=== PATIENT | male | born 1950 | race Caucasian/White ===

== ENCOUNTER 2023-07-28 12:37 | Inpatient (IN) ==
[2023-07-28] MEDS ORDERED: SODIUM CHLORIDE 0.9% 1,000 ML IV SCH (13:00)
[2023-07-28 13:18] LABS: Basophils # (auto) 0.11 K/uL (0.00-0.20); Basophils % (auto) 1.3 %; Eosinophils # (auto) 0.92 K/uL (0.00-0.50); Eosinophils % (auto) 11.3 %; Hematocrit (blood only) 38.2 % (42.0-52.0); Immature Granulocytes # (auto) 0.03 K/uL (0.01-0.20); Immature Granulocytes % (auto) 0.4 %; Lymphocytes # (auto) 1.17 K/uL (1.20-3.40); Lymphocytes % (auto) 14.3 %; Mean Corpuscular Volume 94.1 fL (80.0-100.0); Mean Platelet Volume 11.1 fL (9.4-12.4); Monocytes # (auto) 0.74 K/uL (0.11-0.59); Monocytes % (auto) 9.1 %; Neutrophils % (auto) 63.6 %; Platelet Count 197 K/uL (130-400); RDW Coefficient of Variation 12.2 % (11.5-14.5); RDW Standard Deviation 41.8 fL (36.4-46.3); Red Blood Count 4.06 M/uL (4.70-6.10); White Blood Count 8.17 K/ul (4.8-10.8)
--- NOTE | 2023-07-28 13:28 | XRay Report ---
XR chest 1V portable HISTORY: Sepsis COMPARISON: Chest 08/19/2022. FINDINGS: No pneumothorax. The cardiac silhouette remains enlarged. No evidence for pulmonary edema. Small bilateral pleural effusions and bibasilar linear densities persist. The upper lung zones are cl ear. IMPRESSION: 1. Stable cardiomegaly. No evidence for pulmonary edema. 2. Small bilateral pleural effusions and bibasilar linear densities persist. ACT 112: Negative or not required by law. Electronically signed by: Froylan Srinivasan M.D. 07/28/2023 1:26 PM
[2023-07-28 13:36] LABS: Albumin Level 3.7 gm/dl (3.4-5.0); BUN Creatinine Ratio 25.6 (10-20); Bilirubin Direct 0.1 mg/dl (0-0.2); Bilirubin,Total 0.5 mg/dl (0.2-1.0); Calcium 8.5 mg/dl (8.6-10.3); Est GFR (African American) 15.4 ml/min; Est GFR (Non-African American) 13.3 ml/min; Magnesium 2.2 mg/dl (1.7-2.4); Potassium 5.1 mmol/L (3.5-5.1); Total Protein 6.4 gm/dl (6.0-8.3)
--- NOTE | 2023-07-28 13:36 | Electrocardiogram Report ---
Test Reason : Blood Pressure : / mmHG Vent. Rate : 055 BPM Atrial Rate : 055 BPM P-R Int : 190 ms QRS Dur : 096 ms QT Int : 386 ms P-R-T Axes : 048 042 033 degrees QTc Int : 369 ms Sinus bradycardia Low voltage QRS Borderline ECG When compared with ECG of 19-AUG-2022 19:08, No significant change was found Confirmed by Garfield Mcginnis ([id number]) on 07/28/2023 1:36:38 PM Referred By: Confirmed By:Garfield Mcginnis
[2023-07-28 13:44] LABS: Troponin I High Sensitivity 9.7 pg/ml (0-20)
[2023-07-28 14:55] LABS: Base Excess VBG -7.7 mEq/L; HCO3 VBG 20 mmol/L; Oxygen Saturation VBG < 60.0 %; PCO2 VBG 51 mmHg (38-50); PO2 VBG 25 mmHg; pH VBG 7.21 (7.36-7.41)
--- NOTE | 2023-07-28 14:57 | Emergency Department Note ---
Impression & Plan Lightheadedness, Acute kidney injury superimposed on chronic kidney disease, Acidosis ED Provider Note HISTORY OF PRESENT ILLNESS: Patient is a 73-year-old male presenting with dizziness and hypotension. Patient reports has been having episodes of dizziness described as feeling like he is going to pass out for the last few days. 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 His vital signs showed a blood pressure of 88/48 while he was seated. His EKG at the clinic showed normal sinus rhythm with some T wave inversions in lead III. This was noted to be abnormal from his previous EKG at the [facility] he was sent to the ER for further evaluation. Patient denies any chest pain over the last few days. He reports he been short of breath for the last few weeks, as he was diagnosed with COVID at the end of June. Denies any fevers. Denies any nausea or vomiting. He reports he is more short of breath and very dizzy when he exerts himself. Denies any history of DVT or PE. He is not on any anticoagulation. ROS: as above PHYSICAL EXAM: Constitutional: Patient appears in no acute distress. HENT: Head: Normocephalic and atraumatic. Eyes: EOMI, PERRL Mouth/Throat: Mucous membranes moist. Neck: Trachea midline. Neck supple. Cardiovascular: RRR, No murmurs, rubs or gallops. Intact distal pulses. Pulmonary/Chest: No respiratory distress. Breath sounds clear and equal bilaterally. No wheezes or rales. Abdominal: Abdomen soft, no tenderness, rebound or guarding. Musculoskeletal: No edema, tenderness or deformity noted. Skin: Warm and dry. No rash, erythema, pallor or cyanosis Psychiatric: Appropriate mood and affect for situation. Neurological: Alert and keenly responsive. CN II-XII grossly intact, moving all extremities equally and fully. MDM: - Vitals signs showed bradycardia - History obtained via patient. History as above - Chronic conditions affecting care: CKD stage 4; HTN; hyperparathyroidism - Differential diagnoses include, but are not limited to: ACS; PE; pneumonia; viral syndrome; UTI; sepsis - Order placed for continuous cardiac monitoring. At this time, monitor showed rate of 60 bpm with normal sinus rhythm, per my interpretation. - External medical records reviewed. EKG from [facility] was reviewed. Dated 07/28/2023 time 1057. Showed normal sinus rhythm with a rate of 66 bpm. QTc was 398. He is noted to have some T wave inversions in lead III. No evidence of acute ischemic changes - EKG reviewed by myself showed normal sinus rhythm. Rate 55 bpm. QTc 369. No acute ischemic changes. The T wave inversions on our EKG are significantly less as compared to the EKG at the [facility]. - Laboratory workup interpreted by myself showed normal WBC; stable electrolyt es; JESUS on CKD (Cr 4.1 - baseline around 2.6); normal troponin; normal procalcitonin; normal lactate - VBG shows acidosis (pH 7.21; PCO2 slightly elevated at 51) - CXR shows bilateral pleural effusions, per my interpretation. - Blood cultures obtained - Patient's orthostatics stable. However, patient reports feeling lightheaded while standing. Patient has been bradycardic. On previous EKGs his heart rate was in the upper 70s to low 80s. I wonder if his lightheadedness is secondary to his symptomatic bradycardia. He has no evidence of a heart block on his EKG. However, dizziness may also be secondary to dehydration. Patient does have an JESUS superimposed on his CKD. He reports dizziness with standing upright and ambulation. Given 1 L normal saline in the ER - Discussion was had with marriage and family social worker about patient's case and need for admission - Hospitalist consulted for admission - Patient admitted to [facility] Hospitalist service for further evaluation and management. 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 Vitamin D deficiency Surgical History No pertinent past surgical history Social History (Updated 08/14/22 @ 14:34 by BECKY Solis) Smoking Status: Never smoker Tobacco Type: Cigarettes Age Started Using Tobacco: 18; Age Quit Using Tobacco: 48; Second Hand Exposure: No; Do You Dip or Chew Tobacco: No; Hx Alcohol Use: No Hx Substance Use: No Preferred Language: [place] Visual Impairment: Partially Limited Hearing Ability: Use of Hearing Aid Referral Nurse Required: No Beliefs That Will Affect Care: None marital status: Current Living Situation: Spouse current occupational status: retired Feels Safe at Home: Yes Childhood Exposure to Second-Hand Smoke: Yes Diet: regular caffeine: No during the past year weight has: remained stable Physical Activity Frequency: Does not Exercise Seatbelt Use: always Allergies Allergies Allergy/AdvReac Type Severity Reaction Status Date / Time cephalexin [From Keflex] Allergy Unknown CAN'T Verified 07/28/23 15:47 REMEMBER Home Meds Home Medications Medication Instructions Recorded Confirmed atorvastatin 80 mg tablet 80 mg PO DAILY 11/13/19 04/26/23 allopurinol 100 mg tablet 100 mg PO DAILY 12/19/20 04/26/23 ferrous sulfate 325 mg (65 mg 325 mg PO DAILY 12/19/20 04/26/23 iron) tablet isosorbide mononitrate 30 mg 30 mg PO DAILY 12/19/20 04/26/23 tablet,extended release 24 hr levothyroxine 50 mcg tablet 50 mcg PO DAILY 12/19/20 04/26/23 nitroglycerin 0.4 mg sublingual 0.4 mg sublingual Q5M PRN Chest 12/19/20 04/26/23 tablet Pain albuterol sulfate 90 mcg/actuation 2 puff inhalation Q6H PRN 05/20/22 04/26/23 aerosol inhaler Shortness Of Breath folic acid 1 mg tablet 1 mg PO DAILY 05/20/22 04/26/23 pantoprazole 40 mg tablet,delayed 40 mg PO BID 05/20/22 04/26/23 release tamsulosin 0.4 mg capsule 0.4 mg PO DAILY 05/20/22 04/26/23 cholecalciferol (vitamin D3) 50 50 mcg PO DAILY 06/18/22 04/26/23 mcg (2,000 unit) capsule fluticasone 250 mcg-salmeterol 50 1 inh inhalation BID 08/10/22 04/26/23 mcg/dose blistr powdr for inhalation oxycodone 5 mg tablet 5 mg PO DAILY PRN Pain 08/10/22 04/26/23 tiotropium bromide 2.5 1 inh inhalation QAM 08/10/22 04/26/23 mcg/actuation mist for inhalation Previous Rx's Medication Instructions Recorded metoprolol tartrate 25 mg tablet 25 mg PO BID #60 tabs 10/22/22 lisinopril 10 mg tablet 10 mg PO DAILY #90 tabs 02/22/23 calcitriol 0.25 mcg capsule 0.25 mcg PO DAILY #90 caps 05/17/23 torsemide 10 mg tablet 10 mg PO DAILY #90 tabs 06/30/23 Results & Data (ED) Vital Signs Vital Signs - 24 hr 07/28/23 12:37 07/28/23 13:16 07/28/23 13:13 Temperature 36.3 C L Temperature Source Oral Pulse Rate - Lying Pulse Rate - Sitting Pulse Rate - Standing Pulse Rate 60 62 57 L Pulse Rate [Apical] Pulse Rate from SpO2 Sensor Respiratory Rate 18 22 Respiratory Effort / Characteristics Respiratory Depth Blood Pressure - Lying Blood Pressure - Sitting Blood Pressure- Standing Blood Pressure 99/62 L 122/61 Blood Pressure [Right Arm] Blood Pressure Mean 74 81 Blood Pressure Mean [Right Arm] Pulse Oximetry 98 96 Oxygen Delivery Method Sepsis Recent Fever Within 48 Hours No Sepsis New/Unexplained Change in Mental Status N/A Sepsis Action Taken by Nursing No Action Required 07/28/23 14:14 07/28/23 14:14 07/28/23 13:30 Temperature Temperature Source Pulse Rate - Lying Pulse Rate - Sitting Pulse Rate - Standing Pulse Rate 55 L Pulse Rate [Apical] 57 L Pulse Rate from SpO2 Sensor Respiratory Rate 20 22 Respiratory Effort / Characteristics Non-Labored Respiratory Depth Normal Blood Pressure - Lying Blood Pressure - Sitting Blood Pressure- Standing Blood Pressure 118/65 Blood Pressure [Right Arm] 124/70 Blood Pressure Mean 82 Blood Pressure Mean [Right Arm] 88 Pulse Oximetry 97 96 Oxygen Delivery Method Room Air Room Air Sepsis Recent Fever Within 48 Hours Sepsis New/Unexplained Change in Mental Status Sepsis Action Taken by Nursing 07/28/23 14:00 07/28/23 14:30 07/28/23 15:15 Temperature Temperature Source Pulse Rate - Lying 56 L Pulse Rate - Sitting 61 Pulse Rate - Standing 62 Pulse Rate 54 L 56 L Pulse Rate [Apical] Pulse Rate from SpO2 Sensor 54 L 55 L Respiratory Rate 21 16 Respiratory Effort / Characteristics Respiratory Depth Blood Pressure - Lying 136/73 Blood Pressure - Sitting 131/72 Blood Pressure- Standing 120/66 Blood Pressure 124/70 Blood Pressure [Right Arm] Blood Pressure Mean 88 Blood Pressure Mean [Right Arm] Pulse Oximetry 97 97 Oxygen Delivery Method Sepsis Recent Fever Within 48 Hours Sepsis New/Unexplained Change in Mental Status Sepsis Action Taken by Nursing 07/28/23 15:10 07/28/23 15:10 07/28/23 15:11 Temperature Temperature Source Pulse Rate - Lying Pulse Rate - Sitting Pulse Rate - Standing Pulse Rate 55 L 60 Pulse Rate [Apical] Pulse Rate from SpO2 Sensor Respiratory Rate 18 17 Respiratory Effort / Characteristics Respiratory Depth Blood Pressure - Lying Blood Pressure - Sitting Blood Pressure- Standing Blood Pressure 131/72 120/66 Blood Pressure [Right Arm] Blood Pressure Mean 86 84 Blood Pressure Mean [Right Arm] Pulse Oximetry 96 Oxygen Delivery Method Room Air Sepsis Recent Fever Within 48 Hours Sepsis New/Unexplained Change in Mental Status Sepsis Action Taken by Nursing 07/28/23 15:11 07/28/23 15:30 07/28/23 15:30 Temperature Temperature Source Pulse Rate - Lying Pulse Rate - Sitting Pulse Rate - Standing Pulse Rate 62 51 L Pulse Rate [Apical] Pulse Rate from SpO2 Sensor 51 L Respiratory Rate 13 22 Respiratory Effort / Characteristics Respiratory Depth Blood Pressure - Lying Blood Pressure - Sitting Blood Pressure- Standing Blood Pressure 139/70 Blood Pressure [Right Arm] Blood Pressure Mean 99 Blood Pressure Mean [Right Arm] Pulse Oximetry 95 Oxygen Delivery Method Sepsis Recent Fever Within 48 Hours Sepsis New/Unexplained Change in Mental Status Sepsis Action Taken by Nursing Laboratory Data 07/28/23 12:55 07/28/23 12:55 Lab Results 07/28/23 07/28/23 07/28/23 Range/Units 12:55 12:55 12:55 WBC 8.17 (4.8-10.8) K/ul RBC 4.06 L (4.70-6.10) M/uL Hgb 13.0 L (14.0-18.0) g/dl Hct 38.2 L (42.0-52.0) % MCV 94.1 (80.0-100.0) fL MCH 32.0 (25.0-34.0) pg MCHC 34.0 (32.0-36.0) g/dL RDW Std Deviation 41.8 (36.4-46.3) fL RDW Coeff of Nancy 12.2 (11.5-14.5) % Plt Count 197 (130-400) K/uL MPV 11.1 (9.4-12.4) fL Immature Gran % (Auto) 0.4 % Neut % (Auto) 63.6 % Lymph % (Auto) 14.3 % Hamilton % (Auto) 9.1 % Eos % (Auto) 11.3 % Baso % (Auto) 1.3 % Neut # (Auto) 5.20 (1.40-6.50) K/uL Lymph # (Auto) 1.17 L (1.20-3.40) K/uL Hamilton # (Auto) 0.74 H (0.11-0.59) K/uL Eos # (Auto) 0.92 H (0.00-0.50) K/uL Baso # (Auto) 0.11 (0.00-0.20) K/uL Immature Gran # (Auto) 0.03 (0.01-0.20) K/uL VBG pH (7.36-7.41) VBG pCO2 (38-50) mmHg VBG pO2 mmHg VBG HCO3 mmol/L VBG O2 Saturation % VBG Base Excess mEq/L Sodium 140 (136-145) mmol/L Potassium 5.1 (3.5-5.1) mmol/L Chloride 112 H (98-107) mmol/L Carbon Dioxide 21 (21-32) mmol/L Anion Gap 7 (3-11) BUN 105 H (6-23) mg/dl Creatinine 4.10 H (0.6-1.4) mg/dl Est Cr Clr Drug Dosing 20.0 ml/min Est GFR ( Amer) 15.4 ml/min Est GFR (Non-Af Amer) 13.3 ml/min BUN/Creatinine Ratio 25.6 H (10-20) Glucose 89 (70-99(Fasting)) mg/dl Lactate (0.4-2.0) mmol/L Calcium 8.5 L (8.6-10.3) mg/dl Magnesium 2.2 (1.7-2.4) mg/dl Total Bilirubin 0.5 (0.2-1.0) mg/dl Direct Bilirubin 0.1 (0-0.2) mg/dl AST 18 (13-39) U/L ALT 18 (7-52) U/L Alkaline Phosphatase 93 (34-104) U/L Troponin I High Sens 9.7 (0-20) pg/ml Total Protein 6.4 (6.0-8.3) gm/dl Albumin 3.7 (3.4-5.0) gm/dl Procalcitonin 0.17 (0-0.5) ng/ml 07/28/23 07/28/23 Range/Units 14:36 14:36 WBC (4.8-10.8) K/ul RBC (4.70-6.10) M/uL Hgb (14.0-18.0) g/dl Hct (42.0-52.0) % MCV (80.0-100.0) fL MCH (25.0-34.0) pg MCHC (32.0-36.0) g/dL RDW Std Deviation (36.4-46.3) fL RDW Coeff of Nancy (11.5-14.5) % Plt Count (130-400) K/uL MPV (9.4-12.4) fL Immature Gran % (Auto) % Neut % (Auto) % Lymph % (Auto) % Hamilton % (Auto) % Eos % (Auto) % Baso % (Auto) % Neut # (Auto) (1.40-6.50) K/uL Lymph # (Auto) (1.20-3.40) K/uL Hamilton # (Auto) (0.11-0.59) K/uL Eos # (Auto) (0.00-0.50) K/uL Baso # (Auto) (0.00-0.20) K/uL Immature Gran # (Auto) (0.01-0.20) K/uL VBG pH 7.21 L (7.36-7.41) VBG pCO2 51 H (38-50) mmHg VBG pO2 25 mmHg VBG HCO3 20 mmol/L VBG O2 Saturation < 60.0 % VBG Base Excess -7.7 mEq/L Sodium (136-145) mmol/L Potassium (3.5-5.1) mmol/L Chloride (98-107) mmol/L Carbon Dioxide (21-32) mmol/L Anion Gap (3-11) BUN (6-23) mg/dl Creatinine (0.6-1.4) mg/dl Est Cr Clr Drug Dosing ml/min Est GFR ( Amer) ml/min Est GFR (Non-Af Amer) ml/min BUN/Creatinine Ratio (10-20) Glucose (70-99(Fasting)) mg/dl Lactate 0.9 (0.4-2.0) mmol/L Calcium (8.6-10.3) mg/dl Magnesium (1.7-2.4) mg/dl Total Bilirubin (0.2-1.0) mg/dl Direct Bilirubin (0-0.2) mg/dl AST (13-39) U/L ALT (7-52) U/L Alkaline Phosphatase (34-104) U/L Troponin I High Sens (0-20) pg/ml Total Protein (6.0-8.3) gm/dl Albumin (3.4-5.0) gm/dl Procalcitonin (0-0.5) ng/ml Administered Medications Discontinued Medications Sodium Chloride (Nss) 1,000 mls @ 999 mls/hr IV .Q1H1M JOESPH Stop: 07/28/23 14:00 Last Infusion: 07/28/23 15:00 Dose: 0 mls/hr Documented By: Admin: 07/28/23 13:29 Dose: 999 mls/hr Documented By: MT Imaging Data Radiologist's Impression: Chest X-Ray 07/28/23 12:57 XR chest 1V portable HISTORY: Sepsis COMPARISON: Chest 08/19/2022. FINDINGS: No pneumothorax. The cardiac silhouette remains enlarged. No evidence for pulmonary edema. Small bilateral pleural effusions and bibasilar linear densities persist. The upper lung zones are clear. IMPRESSION: 1. Stable cardiomegaly. No evidence for pulmonary edema. 2. Small bilateral pleural effusions and bibasilar linear densities persist. ACT 112: Negative or not required by law. Electronically signed by: Froylan Srinivasan M.D. 07/28/2023 1:26 PM Discharge Plan Visit Data Chief Complaint: Referred by Doctor Stated Complaint: DIZZY, LOW BLOOD PRESSURE ED Provider: Darcy Crabtree Discharge Problem: Lightheadedness, Acute kidney injury superimposed on chronic kidney disease, Acidosis Forms Stand Alone Forms: [employer] Prescriptions Prescriptions: No Action calcitriol 0.25 mcg capsule 0.25 mcg PO DAILY Qty: 90 3RF torsemide 10 mg tablet 10 mg PO DAILY Qty: 90 3RF albuterol sulfate 90 mcg/actuation HFA aerosol inhaler 2 puff inhalation Q6H PRN (Reason: Shortness Of Breath) pantoprazole 40 mg tablet,delayed release (DR/EC) 40 mg PO BID folic acid 1 mg tablet 1 mg PO DAILY tamsulosin 0.4 mg capsule 0.4 mg PO DAILY levothyroxine 50 mcg tablet 50 mcg PO DAILYBB isosorbide mononitrate 30 mg tablet extended release 24 hr 30 mg PO DAILY allopurinol 100 mg tablet 100 mg PO DAILY nitroglycerin 0.4 mg tablet, sublingual 0.4 mg sublingual Q5M PRN (Reason: Chest Pain) Rx Instructions: do not exceed 3 doses per episode ferrous sulfate 325 mg (65 mg iron) tablet 325 mg PO DAILY oxycodone 5 mg tablet 5 mg PO DAILY PRN (Reason: Pain) fluticasone propion-salmeterol 250-50 mcg/dose blister with device 1 inh inhalation BID tiotropium bromide 2.5 mcg/actuation mist 1 inh inhalation QAM atorvastatin 80 mg tablet 80 mg PO HS lisinopril 10 mg tablet 10 mg PO DAILY Qty: 90 3RF albuterol sulfate 2.5 mg /3 mL (0.083 %) Solution For Nebulization 2.5 mg INHALATION Q8H PRN (Reason: Shortness Of Breath) multivitamin Tablet 1 tab PO DAILY cranberry extract [Cranberry Concentrate] 500 mg Capsule 1,500 mg PO QAM Rx Instructions: administer with meals metoprolol tartrate 25 mg tablet 12.5 mg PO BID Referrals Referrals: Hoa Dailey PA-C [Primary Care Provider] -
[2023-07-28] MEDS ORDERED: SODIUM CHLORIDE 0.9% 1,000 ML IV ONE (16:04)
--- NOTE | 2023-07-28 16:06 | History & Physical Report ---
Date of Service July 28, 2023 Assessment & Plan (1) Lightheadedness: Plan: Hypotension, presyncope. Suspect volume depletion, DDx includes symptomatic bradycardia Normotensive following fluids Patient additionally with slightly worsened resting bradycardia, previously was ranged from mid 50s80s. 5160 on admission. Metoprolol held. No heart block noted on EKG. Follow on telemetry. If symptomatic bradycardia develops, atropine is on-call. Suspect from volume depletion rather than symptomatic bradycardia, however if heart block is observed consult cardiology at that time Blood cultures drawn due to hypotension, no infectious symptoms. Antibiotics deferred, follow clinically Normotensive at time of reassessment, heart rate 6065 at time of reassessment. JESUS on CKD 4, history of IgA kidney nephropathy. 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 At last follow-up 04/26/2023 had discussed starting a sodium bicarbonate if continued to be persistently low BUN/creatinine ratio contracted at 25.6 Clinically slightly volume depleted with contracted ratio Received IVF M 1 L in ER. Diet ordered, encourage p.o. Trend labs daily Potassium upper limit of normal. Did receive fluids. No acute EKG changes. 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 Lisinopril held for JESUS. Torsemide held for JESUS. No evidence of pulmonary edema/volume overload Lexiscan 03/2022 without inducible ischemia. Echo 04/2022 EF 60%, no wall motion abnormality Lisinopril held, patient mildly hypertensive at assessment. Will defer aggressive antihypertensives in the setting of recent volume depletion/hypotension. Hydralazine 2.5 mg on-call as needed for SBP greater than 180 Recent COVID Initial symptoms 2 weeks ago. No hypoxia. Did not receive any antivirals or steroids No shortness of breath, difficulty breathing at this time No steroids currently indicated Initial symptoms 2 weeks ago. Discussed with infection control, patient does have ongoing dry cough and shortness of breath. History of gout Allopurinol continued, no evidence of acute flare BPH Flomax temporarily held with presyncope, resume 07/29 if doing well Bladder scan every shift, straight cath if needed for retention DVT prophylaxis:Heparin 2/2 CKD Diet: Heart healthy Disposition: Telemetry due to presyncope and bradycardia CODE STATUS: Full code (2) Acute kidney injury superimposed on chronic kidney disease: (3) Acidosis: (4) IgA nephropathy determined by renal biopsy: (5) LVH (left ventricular hypertrophy): (6) Chronic kidney disease, stage 4 (severe): (7) Acute kidney injury: History of Present Illness Primary Care Provider: Hoa Dailey PA-C 73-year-old male with past medical history of IgA nephropathy/CKD, hyperlipidemia, bradycardia and recent COVID who presents with lightheadedness and dizziness. No syncope. No chest pain Chart Review: No leukocytosis. Hemoglobin 13 on admit with baseline of around 1113, normocytic VB.21/51/25/20. Mixed respiratory and metabolic acidosis Creatinine baseline approximately 2.12.8. Creatinine 4.10 on admission Potassium 5.1 High-sensitivity troponin normal Procalcitonin normal CXR: Small bilateral pleural effusions, bibasilar linear densities, stable cardiomegaly without overt pulmonary edema Normal O2 saturation on room air EKG: Sinus bradycardia, QTc 369, no acute ischemic findings Per ER: - Outpatient [place] [facility] appointment was hypotensive 80s/60s. Few days of lightheadedness and fatigue. Small effusions without edema. COVID 12 days ago. Hx of - New mild bradycardia in the 50s. Is on metoprolol which was decreased by 50%(25-->12.5). prior to COVID. Clinically does not appear hypervolemic. Per Pt: "Yousif" reports he had COVID 2 weeks ago. 'Coughing then, still coughing now.' Has had some persistent shortness of breath. Mild clear sputum production. No fevers or chills recently. Had fevers/chills initially for 1-2 days then improvd. No diarrhea. No nausea/vomiting. Peeing regularly, has not been darker than usual. no dysuria. No belly pain. No chest pain or chest pressure. No syncope, but has felt lightheaded last few days. [facility] was [facility] for [facility] evaluation. Presyncope last 2-3 maybe 4 days. No prior hx of this. Has not fallen, no trauma/injuries. Taking all medications as directed, took his morning medications today Legs used to get a lot of swelling, none currently. No orthopnea. Medical History: Reviewed Medications: Reviewed Surgical History: Reviewed Family history: Reviewed Allergies: Reviewed. Keflex, but not sure what allergy is. Social History: No etoh use. No tobacco product use. Code Status: Full Code Allergies Allergy/AdvReac Type Severity Reaction Status Date / Time cephalexin [From Keflex] Allergy Unknown CAN'T Verified 07/28/23 15:47 REMEMBER Home Medications Medication Instructions Recorded Confirmed Type atorvastatin 80 mg tablet 80 mg PO HS 11/13/19 07/28/23 History allopurinol 100 mg tablet 100 mg PO DAILY 12/19/20 07/28/23 History ferrous sulfate 325 mg (65 mg 325 mg PO DAILY 12/19/20 07/28/23 History iron) tablet isosorbide mononitrate 30 mg 30 mg PO DAILY 12/19/20 07/28/23 History tablet,extended release 24 hr levothyroxine 50 mcg tablet 50 mcg PO DAILYBB 12/19/20 07/28/23 History nitroglycerin 0.4 mg sublingual 0.4 mg sublingual Q5M PRN Chest 12/19/20 07/28/23 History tablet Pain albuterol sulfate 90 mcg/actuation 2 puff inhalation Q6H PRN 05/20/22 07/28/23 History aerosol inhaler Shortness Of Breath folic acid 1 mg tablet 1 mg PO DAILY 05/20/22 07/28/23 History pantoprazole 40 mg tablet,delayed 40 mg PO BID 05/20/22 07/28/23 History release tamsulosin 0.4 mg capsule 0.4 mg PO DAILY 05/20/22 07/28/23 History fluticasone 250 mcg-salmeterol 50 1 inh inhalation BID 08/10/22 07/28/23 History mcg/dose blistr powdr for inhalation oxycodone 5 mg tablet 5 mg PO DAILY PRN Pain 08/10/22 07/28/23 History tiotropium bromide 2.5 1 inh inhalation QAM 08/10/22 07/28/23 History mcg/actuation mist for inhalation lisinopril 10 mg tablet 10 mg PO DAILY #90 tabs 02/22/23 07/28/23 Rx calcitriol 0.25 mcg capsule 0.25 mcg PO DAILY #90 caps 05/17/23 07/28/23 Rx torsemide 10 mg tablet 10 mg PO DAILY #90 tabs 06/30/23 07/28/23 Rx albuterol sulfate 2.5 mg/3 mL 2.5 mg inhalation Q8H PRN 07/28/23 07/28/23 History (0.083 %) solution for nebulization Shortness Of Breath cranberry extract 500 mg capsule 1,500 mg PO QAM 07/28/23 07/28/23 History (Cranberry Concentrate) metoprolol tartrate 25 mg tablet 12.5 mg PO BID 07/28/23 07/28/23 History multivitamin 1 tab PO DAILY 07/28/23 07/28/23 History Past Med/Surg History Medical History (Updated 07/28/23 @ 15:40 by Darcy Crabtree MD) Acute kidney injury Anemia of chronic disease Chronic kidney disease, stage 4 (severe) HTN (hypertension) IgA nephropathy determined by renal biopsy Lower extremity edema Proteinuria Secondary hyperparathyroidism of 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 Vitamin D deficiency Surgical History No pertinent past surgical history Social History (Updated 08/14/22 @ 14:34 by BECKY Solis) Smoking Status: Never smoker Tobacco Type: Cigarettes Age Started Using Tobacco: 18; Age Quit Using Tobacco: 48; Second Hand Exposure: No; Do You Dip or Chew Tobacco: No; Hx Alcohol Use: No Hx Substance Use: No Preferred Language: Belarusian Visual Impairment: Partially Limited Hearing Ability: Use of Hearing Aid Kiln Stoker Required: No Beliefs That Will Affect Care: None marital status: Current Living Situation: Spouse current occupational status: retired Feels Safe at Home: Yes Childhood Exposure to Second-Hand Smoke: Yes Diet: regular caffeine: No during the past year weight has: remained stable Physical Activity Frequency: Does not Exercise Seatbelt Use: always Review of Systems Review of Systems: All systems reviewed & are unremarkable except as noted in HPI & below Physical Exam Physical Exam: General: A&Ox3. NAD. Cooperative. HEENT: Atraumatic, normocephalic. Vision/hearing intact Pulm: CTAB A&P. -wheezes, -rales, -rhonchi. Symmetrical chest rise. No increased work of breathing. No respiratory distress. Cardiac: RRR, -mrg. Radial pulses intact and symmetrical. At time of assessment patient is not bradycardic, rate about 6060 Abdominal: Nontender, nondistended, soft. BS present. Extremities: Moves all extremities equally. Lower extremities warm and dry, no pitting edema Results & Data Results & Data Vital Signs (Past 12 Hours) Vital Signs Temp Pulse Pulse Resp BP BP Pulse Ox 07/28/23 15:30 51 L 22 95 07/28/23 15:30 139/70 07/28/23 15:11 62 13 07/28/23 15:11 120/66 07/28/23 15:10 60 17 07/28/23 15:10 55 L 18 131/72 96 07/28/23 14:30 56 L 16 97 07/28/23 14:00 54 L 21 124/70 97 07/28/23 13:30 55 L 22 118/65 07/28/23 14:14 96 07/28/23 14:14 57 L 20 124/70 97 07/28/23 13:13 57 L 22 122/61 96 07/28/23 13:16 62 07/28/23 12:37 36.3 C L 60 18 99/62 L 98 O2 Del Method 07/28/23 15:30 07/28/23 15:30 07/28/23 15:11 07/28/23 15:11 07/28/23 15:10 07/28/23 15:10 Room Air 07/28/23 14:30 07/28/23 14:00 07/28/23 13:30 07/28/23 14:14 Room Air 07/28/23 14:14 Room Air 07/28/23 13:13 07/28/23 13:16 07/28/23 12:37 PG Care Time/CCT Total # of Minutes Spent Total Time Spent with Patient: Total time spent is greater than 50% in coordination of care (as documented) at patient's floor/unit and/or counseling patient: Coding Level of Care Code 84734 INT INP/OBS CARE 3/75MIN Diagnoses Lightheadedness R42 Acute kidney injury superimposed on chronic kidney disease N17.9; N18.9 Acidosis E87.20 IgA nephropathy determined by renal biopsy N02.8 LVH (left ventricular hypertrophy) I51.7 Chronic kidney disease, stage 4 (severe) N18.4 Acute kidney injury N17.9
[2023-07-28 17:52] LABS: Appearance Urine Clear (Clear); Bacteria Urine Automated Negative (Negative); Bilirubin Urine Negative (Negative); Blood Urine Negative (Negative); Color Urine Yellow; Glucose Urine UA Negative (Negative); Ketones Urine Negative (Negative); Leukocyte Esterase Urine Negative (Negative); Nitrite Urine Negative (Negative); Protein Urine 1+ (Negative); RBC Urine Automated 0-4 /hpf (0-4); Specific Gravity Urine 1.012 (1.000-1.030); Urobilinogen Urine Negative (Negative)
[2023-07-28] MEDS ORDERED: ALBUTEROL HFA 8 GM INHALER INH PRN (19:51)
[2023-07-28] MEDS ORDERED: ATROPINE SULFATE 0.1 MG/ML 5ML SYR IV PRN (19:51)
[2023-07-28] MEDS ORDERED: oxyCODONE HCL IR 5 MG TAB (IMMEDIATE RELEASE) PO PRN (19:51)
[2023-07-28] MEDS ORDERED: NITROGLYCERIN SL 0.4 MG/TAB TAB SL PRN (19:51)
[2023-07-28] MEDS ORDERED: hydrALAZINE HCL 20 MG/ML VIAL IV PRN (19:51)
[2023-07-28] MEDS ORDERED: ALBUTEROL 0.083% NEBU SOLN 3 ML VIAL INH PRN (19:51)
[2023-07-28] MEDS: PANTOprazole 40 MG TAB PO SCH (20:43)
[2023-07-28] MEDS ORDERED: ATORVASTATIN 40 MG TAB PO SCH (21:00)
[2023-07-28] MEDS: HEPARIN SOD 5,000 UNIT/0.5 ML VIAL SQ SCH (22:57)
[2023-07-28 23:55] LABS: Total Protein Urine Random 38.1 mg/dl (0-11.9)
[2023-07-29 00:01] LABS: Creatinine Urine Random 71.5 mg/dl; Protein Creatinine Ratio Urine 0.5 (0-0.2)
[2023-07-29] MEDS: HEPARIN SOD 5,000 UNIT/0.5 ML VIAL SQ SCH ×2 (06:22→14:24)
[2023-07-29] MEDS ORDERED: LEVOTHYROXINE SODIUM 50 MCG TABLET PO SCH (06:30)
[2023-07-29 07:28] LABS: Basophils # (auto) 0.07 K/uL (0.00-0.20); Basophils % (auto) 1.1 %; Eosinophils # (auto) 0.82 K/uL (0.00-0.50); Eosinophils % (auto) 12.4 %; Hematocrit (blood only) 36.9 % (42.0-52.0); Hemoglobin 12.6 g/dl (14.0-18.0); Immature Granulocytes # (auto) 0.04 K/uL (0.01-0.20); Immature Granulocytes % (auto) 0.6 %; Lymphocytes # (auto) 1.02 K/uL (1.20-3.40); Lymphocytes % (auto) 15.4 %; Mean Corpuscular Hemoglobin 31.8 pg (25.0-34.0); Mean Corpuscular Hgb Conc 34.1 g/dL (32.0-36.0); Mean Corpuscular Volume 93.2 fL (80.0-100.0); Monocytes # (auto) 0.53 K/uL (0.11-0.59); Neutrophils # (auto) 4.15 K/uL (1.40-6.50); Neutrophils % (auto) 62.5 %; Platelet Count 160 K/uL (130-400); RDW Coefficient of Variation 12.2 % (11.5-14.5); RDW Standard Deviation 41.2 fL (36.4-46.3); Red Blood Count 3.96 M/uL (4.70-6.10); White Blood Count 6.63 K/ul (4.8-10.8)
[2023-07-29 07:39] LABS: BUN Creatinine Ratio 28.6 (10-20); Calcium 8.2 mg/dl (8.6-10.3); Est GFR (African American) 18.9 ml/min; Est GFR (Non-African American) 16.3 ml/min; Potassium 4.7 mmol/L (3.5-5.1)
[2023-07-29] MEDS: PANTOprazole 40 MG TAB PO SCH (08:28)
[2023-07-29] MEDS ORDERED: FERROUS SULFATE 325 MG TAB PO SCH (09:00)
[2023-07-29] MEDS ORDERED: allopurinoL 100 MG TAB PO SCH (09:00)
[2023-07-29] MEDS ORDERED: UMECLIDINIUM BROMIDE 62.5MCG/BLISTER 7 PUFFS/INHALER INH SCH (09:00)
[2023-07-29] MEDS ORDERED: FLUTICASONE/VILANTEROL 100/25MCG 14 PUFFS/INHALER INH SCH (09:00)
[2023-07-29] MEDS ORDERED: NON-FORMULARY MEDICATION (Cranberry Extract [Cranberry Concentrate] 500 mg Capsule) PO SCH (09:00)
[2023-07-29] MEDS ORDERED: FOLIC ACID 1 MG TAB PO SCH (09:00)
[2023-07-29] MEDS ORDERED: MULTIVITAMIN TAB PO SCH (09:00)
[2023-07-29] MEDS ORDERED: ISOSORBIDE MONO EXTENDED REL 30 MG TABCR PO SCH (09:00)
[2023-07-29] MEDS ORDERED: CALCITRIOL 0.25 MCG CAPSULE PO SCH (09:00)
--- NOTE | 2023-07-29 09:50 | Hospitalist Progress Note ---
Date of Service July 29, 2023 Assessment & Plan (1) Acute kidney injury superimposed on chronic kidney disease: Plan: JESUS on CKD 4, history of IgA kidney nephropathy. Suspect prerenal azotemia. 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 Lisinopril held for JESUS. Torsemide held for JESUS. No evidence of pulmonary edema/volume overload Lexiscan 03/2022 without inducible ischemia. Echo 04/2022 EF 60%, no wall motion abnormality Lisinopril held, patient mildly hypertensive at assessment. Will defer aggressive antihypertensives in the setting of recent volume depletion/hypotension. Hydralazine 2.5 mg on-call as needed for SBP greater than 180 (3) COVID: Plan: Recent COVID Initial symptoms 2 weeks ago. No hypoxia. Did not receive any antivirals or steroids No shortness of breath, difficulty breathing at this time covid test positive 07/28 Plan DVT prophylaxis:Heparin 2/2 CKD CODE STATUS: Full code Admission and Anticipated Discharge Date Admission Date: July 28, 2023 Results & Data Results & Data Vital Signs (Past 12 Hours) Vital Signs Temp Pulse Pulse Resp BP BP Pulse Ox 07/29/23 07:51 97.9 F 68 18 132/70 95 07/29/23 03:21 97.7 F 76 14 171/74 H 96 07/28/23 22:30 61 07/28/23 22:57 97.9 F 68 16 178/69 H 96 O2 Del Method 07/29/23 07:51 Room Air 07/29/23 03:21 Room Air 07/28/23 22:30 07/28/23 22:57 Room Air PG Care Time/CCT Total # of Minutes Spent Total Time Spent with Patient: Total time spent is greater than 50% in coordination of care (as documented) at patient's floor/unit and/or counseling patient: Coding Diagnoses Acute kidney injury superimposed on chronic kidney disease N17.9; N18.9 LVH (left ventricular hypertrophy) I51.7 COVID U07.1
--- NOTE | 2023-07-29 14:00 | Discharge Summary ---
Date of Service July 29, 2023 Admission HPI Per Admitting Provider 73-year-old male with past medical history of IgA nephropathy/CKD, hyperlipidemia, bradycardia and recent COVID who presents with lightheadedness and dizziness. No syncope. No chest pain Chart Review: No leukocytosis. Hemoglobin 13 on admit with baseline of around 1113, normocytic VB.21/51/25/20. Mixed respiratory and metabolic acidosis Creatinine baseline approximately 2.12.8. Creatinine 4.10 on admission Potassium 5.1 High-sensitivity troponin normal Procalcitonin normal CXR: Small bilateral pleural effusions, bibasilar linear densities, stable cardiomegaly without overt pulmonary edema Normal O2 saturation on room air EKG: Sinus bradycardia, QTc 369, no acute ischemic findings Per ER: - Outpatient [place] Pul[facility] appointment was hypotensive 80s/60s. Few days of lightheadedness and fatigue. Small effusions without edema. COVID 12 days ago. Hx of - New mild bradycardia in the 50s. Is on metoprolol which was decreased by 50%(25-->12.5). prior to COVID. Clinically does not appear hypervolemic. Per Pt: "Yousif" reports he had COVID 2 weeks ago. 'Coughing then, still coughing now.' Has had some persistent shortness of breath. Mild clear sputum production. No fevers or chills recently. Had fevers/chills initially for 1-2 days then improvd. No diarrhea. No nausea/vomiting. Peeing regularly, has not been darker than usual. no dysuria. No belly pain. No chest pain or chest pressure. No syncope, but has felt lightheaded last few days. [facility] evaluation. Presyncope last 2-3 maybe 4 days. No prior hx of this. Has not fallen, no trauma/injuries. Taking all medications as directed, took his morning medications today Legs used to get a lot of swelling, none currently. No orthopnea. Medical History: Reviewed Medications: Reviewed Surgical History: Reviewed Family history: Reviewed Allergies: Reviewed. Keflex, but not sure what allergy is. Social History: No etoh use. No tobacco product use. Code Status: Full Code Principal Diagnosis covid infection not pneumonia dizziness bradycardia Discharge Exam pt awake and alert his symptoms have abated cardiac is regular Discharge Data Allergies Allergy/AdvReac Type Severity Reaction Status Date / Time cephalexin [From Keflex] Allergy Unknown CAN'T Verified 07/28/23 15:47 REMEMBER Consultations 07/28/23 16:05 ED Decision to Admit Stat Hospital Course (1) Acute kidney injury superimposed on chronic kidney disease: JESUS on CKD 4, history of IgA kidney nephropathy. Suspect prerenal azotemia. improving Baseline creatinine 2.02.4 History of IgA kidney nephropathy, on NENO inhibitors and had not been on immunosuppressive treatment in the past calcitriol 0.25 mcg daily, holding lisinopril 10 mg daily, will hold until repeat out pt labs, Torsemide 10 mg daily rsume next week BPH without suspicion of obstructive uropathy Flomax temporarily held with presyncope, resume 07/29 if doing well Bladder scan every shift, straight cath if needed for retention (2) LVH (left ventricular hypertrophy): Mild LVH, hypertension, hyperlipidemia Closing cardiology on an outpatient, no history of reduced EF No anginal 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 Lisinopril held for JESUS. Torsemide held for JESUS. No evidence of pulmonary edema/volume overload Lexiscan 03/2022 without inducible ischemia. Echo 04/2022 EF 60%, no wall motion abnormality Lisinopril held with jesus, resume once improved, encourage hydration. (3) COVID: Recent COVID Initial symptoms 2 weeks ago. No hypoxia. Did not receive any antivirals or steroids No shortness of breath, difficulty breathing at this time covid test positive 07/28 -recommend convalescence and follow up Plan CODE STATUS: Full code Total Time Total Time Spent Total Time Spent (In Minutes): It required greater than 30 minutes to prepare this patient for discharge Discharge Plan Discharge Items Patient Disposition: Home - Self-Care Reason For Visit: JESUS ON CKD, BRADYCARDIA Discharge Diagnosis: Covid infection not pneumonia acute kidney injury with Chronic Kidney disease dizziness without significant slow heart rate Activity: Resume your previous activity Non-emergency contact: Primary Care Provider and Filtration Supervisor Call non-emergency contact if: your symptoms worsen Follow-up/Referrals: Garfield Mcginnis MD [Physician] - 08/12/23 2:00 pm (Follow up scheduled on 08/12/23 @ 2pm in the [facility]) Hoa Dailey PA-C [Primary Care Provider] - (Your PCP will call you once they recieve your records to schedule you a follow up appointment. ) Diet: Regular Addtl Attending Provider Instructions: please keep well hydrated and continue to [facility] please make an appointment for follow up but notify them that you have Covid You have been diagnosed with covid infection, it would be recommended that you quarantine yourself for 10 days from your first test or first symptoms, and if at the 10th day you have no symptoms the you can come off quarantine but use common sense precautions. Quarantine means attempting to stay away from people who have not had an active covid infection in the past, and if you have to be around others to wear a mask even if you are indoors, do not share a room to sleep in with others until you are out of quarantine. If you still have symptoms at the 10th day, continue to quarantine until you are symptom free for 48 hours we are holding your lisinpril and torsemide while your kidney strain improves, please have some outpt lab work on wednesday08/02/23 and notify lab to send to [place] primary care Pending Studies at Discharge: No Stand-Alone Forms: My [facility] [employer], Smoking Cessation Medications and DC Order Prescriptions: Continued calcitriol 0.25 mcg capsule 0.25 mcg PO DAILY Qty: 90 3RF albuterol sulfate 90 mcg/actuation HFA aerosol inhaler 2 puff inhalation Q6H PRN (Reason: Shortness Of Breath) pantoprazole 40 mg tablet,delayed release (DR/EC) 40 mg PO BID folic acid 1 mg tablet 1 mg PO DAILY tamsulosin 0.4 mg capsule 0.4 mg PO DAILY levothyroxine 50 mcg tablet 50 mcg PO DAILYBB isosorbide mononitrate 30 mg tablet extended release 24 hr 30 mg PO DAILY allopurinol 100 mg tablet 100 mg PO DAILY nitroglycerin 0.4 mg tablet, sublingual 0.4 mg sublingual Q5M PRN (Reason: Chest Pain) Rx Instructions: do not exceed 3 doses per episode ferrous sulfate 325 mg (65 mg iron) tablet 325 mg PO DAILY oxycodone 5 mg tablet 5 mg PO DAILY PRN (Reason: Pain) fluticasone propion-salmeterol 250-50 mcg/dose blister with device 1 inh inhalation BID tiotropium bromide 2.5 mcg/actuation mist 1 inh inhalation QAM atorvastatin 80 mg tablet 80 mg PO HS albuterol sulfate 2.5 mg /3 mL (0.083 %) Solution For Nebulization 2.5 mg INHALATION Q8H PRN (Reason: Shortness Of Breath) multivitamin Tablet 1 tab PO DAILY cranberry extract [Cranberry Concentrate] 500 mg Capsule 1,500 mg PO QAM Rx Instructions: administer with meals metoprolol tartrate 25 mg tablet 12.5 mg PO BID Held torsemide 10 mg tablet 10 mg PO DAILY Qty: 90 3RF Hold Instructions: Resume on 08/02/23. Discontinued lisinopril 10 mg tablet 10 mg PO DAILY Qty: 90 3RF Discharge Orders: Discharge Order (Routine); Ordered 07/29/23 Ordered By: Jamil Morton Admission Data Admit Date/Time: 07/28/23 16:54 Attending Provider: Jamil Morton Admit Provider: Cj Banks Primary Care Provider: Hoa Dailey Other Providers: Cj Banks ; [facility] Other Interventions: Discharge Summary Assessment (RN) Last Done: 07/29/23 14:30 Coding Level of Care Code 63215 INP/OBS DISCH >30 MIN Diagnoses Acute kidney injury superimposed on chronic kidney disease N17.9; N18.9 LVH (left ventricular hypertrophy) I51.7 COVID U07.1
== END 2023-07-29 15:05 | disposition home or self-care (01) | DRG 682 ==
LOC: ED 12:37 → SUATTDRO 16:54 → 2S 16:54